=== PATIENT | female | born 1975 | race Caucasian/White ===

== ENCOUNTER 2018-07-04 17:13 | Emergency (ER) | payer OTHER ==
[~2018-07-04] VITALS: Ht 157.5 cm; Wt 107.5 kg
[~2018-07-04 17:13] MED LIST: ALBUTEROL INHAL17 GM IH; NOHOMEMEDICATIONS; NYQUIL D COLD295 ML; PREDNISONE50 MG PO; PROAIR HFA8.5 GM IH; TRIAMCINOLONE TOP
[2018-07-04 17:50] LABS: URINE BILIRUBIN NEGATIVE (Negative); URINE BLOOD 2+ (Negative); URINE CLARITY CLEAR; URINE COLOR YELLOW; URINE GLUCOSE-RANDOM* NEGATIVE (Negative); URINE KETONES NEGATIVE (Negative); URINE LEUKOCYTES-REFLEX NEGATIVE (Negative); URINE NITRITE-REFLEX NEGATIVE (Negative); URINE PROTEIN (DIPSTICK) NEGATIVE (Negative); URINE SPECIFIC GRAVITY <= 1.005 (1.005-1.035); URINE UROBILINOGEN 0.2 E.U./dl (0.2-1.0)
[2018-07-04 18:01] LABS: BACTERIA-REFLEX None Seen /HPF (None Seen); CASTS None Seen /LPF (None Seen); CRYSTALS None Seen /LPF (None Seen); SQUAMOUS None Seen /LPF (0-3); URINE RBC 0-2 Rare /HPF (0-2); URINE WBC-REFLEX None Seen /HPF (0-5)
[2018-07-04 18:28] LABS: ABSOLUTE NEUTROPHILS 6.4 thou/uL (1.4-8.2); EOSINOPHILS 4.8 % (0.0-3.0); HEMATOCRIT 34.7 % (37.0-47.0); HEMOGLOBIN 11.9 gm/dL (12.0-15.0); MCH 25.4 pg (26.0-34.0); MCHC 34.2 g/dL (28.0-37.0); MCV 74.3 fL (80.0-100.0); PLATELET COUNT 350 thou/uL (150-400); POLYS 62.2 % (36.0-66.0); RBC 4.68 mil/uL (4.20-5.00); RDW 15.9 % (10.5-14.5); WBC 10.3 thou/uL (4.0-11.0)
[2018-07-04 18:35] LABS: CALCIUM 8.6 mg/dL (8.5-10.1); CREATININE 0.6 mg/dL (0.6-1.0); POTASSIUM 3.8 mmol/L (3.5-5.1)
[2018-07-04 18:41] LABS: ALBUMIN 2.9 g/dL (3.4-5.0); TOTAL BILIRUBIN 0.2 mg/dL (<0.1-1.0); TOTAL PROTEIN 7.1 g/dL (6.4-8.2)
[2018-07-04] MEDS ORDERED: ULTRAM 50MG TAB50 MG PO (21:19)
[2018-07-04 21:50] VITALS: BP 99/52
[2018-07-05 15:11] LABS: NEISSERIA GONORRHEA-PCR Negative (Negative)
== END 2018-07-04 21:51 | disposition home or self-care (01) ==
LOC: ER 17:13
PROVIDERS: Physician Assistant
DX: N94.6 Dysmenorrhea, unspecified (principal); J45.909 Unspecified asthma, uncomplicated

== ENCOUNTER 2018-10-01 20:08 | Inpatient (IN) | payer OTHER ==
[~2018-10-01] VITALS: Ht 157.5 cm; Wt 111.1 kg
--- NOTE | ~2018-10-01 | EKG ---
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: MAGDA : 1975 Requested By: Rachel Argueta Order Number: [id number] MD: Nishant Chappell Measurements Intervals [place] Rate: 60 P: 27 MD: 149 QRS: 40 QRSD: 79 T: 56 QT: 425 QTc: 425 Interpretive Statements Sinus rhythm No significant abnormality Compared to ECG 11/23/2012 07:56:01 No significant changes Electronically Signed On 10-02-2018 7:52:39 TUBE WASHER by Nishant Chappell [email or web address] <ELECTRONICALLY SIGNED> By: Nishant Chappell MD, [facility] 10/02/18 0752 13 13 Nishant Chappell MD, [facility] /EPI
--- NOTE | ~2018-10-01 | O ---
[facility] [place] [address] OPERATIVE REPORT Name: RAFI LOPEZMARIO KEVEN Room #: 354-P ADM IN M.R.#: [id number] Admission: 10/02/18 Attend Phys: Truong Rios MD Discharge: Date of : 71 Report #: [id number] THIS REPORT FOR: //name// CC: Brian GASTON physician/PCP Truong Rios DATE OF SERVICE: 10/03/2018 SURGEON: Rui Hurley MD. GUEST SPECIALIST: KURTIS Camacho. PREOPERATIVE DIAGNOSIS: Gallstone pancreatitis. POSTOPERATIVE DIAGNOSES: 1. Gallstone pancreatitis. 2. Incarcerated incisional ventral hernia. PROCEDURE 1. Laparoscopic cholecystectomy with intraoperative cholangiogram. 2. Laparoscopic primary repair of incarcerated incisional ventral hernia. ANESTHESIA: General endotracheal anesthesia and local anesthetic. ESTIMATED BLOOD LOSS: 5 mL. SPECIMEN: Gallbladder. COMPLICATIONS: None appreciated. INDICATIONS FOR PROCEDURE: This is a 43-year-old morbidly obese [place] speaking female patient who was seen in the [facility] with right upper quadrant abdominal pain with associated shortness of air, nausea, constipation and vomiting that began the day prior to her admission. She has been unable to tolerate anything by mouth. She tried ibuprofen with no relief of her symptoms. She underwent an abdominal ultrasound showing cholelithiasis without pericholecystic fluid or wall thickening. She did have a dilated common bile duct of up to 10 mm. In addition to this, mild hepatomegaly and hepatic steatosis was present. The patient had elevated transaminases with normal total bilirubin of 0.7; however, her lipase was elevated at 6311. She was kept n.p.o. and given IV fluids and this morning, her lipase has normalized. She presents today for laparoscopic cholecystectomy with cholangiogram. OPERATIVE FINDINGS: Upon entrance in the abdominal cavity, omental adhesions to the gallbladder were present indicative of chronic cholecystitis changes. [facility] [address] [place] [address] OPERATIVE REPORT Name: RAFI LOPEZMARIO KEVEN Room #: 354-P ADM IN [facility].#: [id number] Admission: 10/02/18 Attend Phys: Truong Rios MD Discharge: Date of : 71 Report #: [id number] acute cholecystitis was identified. The critical view consisting of cystic artery, cystic duct and lower edge of the gallbladder forming a window through which the liver was visible was seen prior to clipping the cystic duct for cholangiogram. The cholangiogram was normal with free flow of contrast into the duodenal sweep and no filling defects within the common bile duct. The duct itself was not particularly dilated. After removal of the gallbladder, 3 clips remained on the cystic duct stump. While removing the gallbladder from the abdominal cavity, an incarcerated incisional ventral hernia was appreciated. Omental adhesions to the anterior abdominal wall were present and after taking these down, the hernia was seen. This was as a result of her previous operation. After removal of the gallbladder, the hernia was amenable to laparoscopic suture closure with a separate 0 PDS suture. The gallbladder was opened on the backtable revealing numerous small/medium sized nonpigmented gallstones. At the conclusion of the operation, sponge, needle, and instrument counts were correct. DESCRIPTION OF PROCEDURE IN DETAIL: After the risks, benefits and expectations of the operation were discussed in detail with the patient, informed consent was obtained. The patient was identified in the preoperative holding area. She was given IV antibiotics as documented in the chart in line with SCIP metrics. The patient was then taken to the operating room and she was placed in the supine position. SCDs were placed on the patient's bilateral lower extremities and pneumatic compression was initiated. The patient was then given IV sedation. The patient was intubated without incident. She was prepped and draped in standard sterile fashion. Timeout was performed to identify correct patient and procedure. Local anesthetic was infiltrated into the skin, subcutaneous tissue supraumbilically where a curvilinear incision was made with #15 blade scalpel. Dissection was carried down to the fascia. A small transverse fascial incision was made. An 11-mm Visiport was placed intraperitoneally with a 0-degree angled laparoscope. Pneumoperitoneum was achieved with insufflation of carbon dioxide to 15 mmHg. A 30-degree angled laparoscope was then inserted. A subxiphoid 5-mm and right subcostal 5-mm ports x 2 were placed under direct visualization after local anesthetic was infiltrated into the skin and subcutaneous tissue and appropriately sized incisions were made. Operative findings are as noted above. The dome of the gallbladder was retracted in a cephalad direction. The omental adhesions in the gallbladder were carefully taken down with the ultrasonic dissector. The gallbladder peritoneum was then scored medially and laterally with the ultrasound dissector. Dissection was carried out to identify the cystic artery and cystic duct as the only two structures entering the gallbladder. The cystic duct was clipped and a ductotomy was created sharply. The cholangiocatheter was then inserted and cholangiogram performed with findings as noted above. The cholangiocatheter was then removed and the cystic [facility] [address] [place] [address] OPERATIVE REPORT Name: MARIO HOOVER Room #: 354-P [facility] IN Omid.Carlos.#: [id number] Admission: 10/02/18 Attend Phys: Truong Rios MD Discharge: Date of : 71 Report #: [id number] duct was triply clipped distal to the ductotomy. The duct was divided with the ultrasonic dissector with a good seal. The cystic artery was divided with the ultrasound dissector with good hemostasis. The gallbladder was then dissected out of the liver bed without entrance into the gallbladder or liver bed. The gallbladder was placed in an Endopouch and removed through the supraumbilical port site. While doing so, there was dimpling associated with omental adhesions to the abdominal wall inferior to the port site. After removing the gallbladder from the abdominal cavity, the omental adhesions were taken down with the ultrasonic dissector showing the incarcerated incisional ventral hernia. A [id number] 0 PDS suture was placed with the Subhash-Samina laparoscopic fascial closure device. The suture was tied under direct visualization to ensure no incorporation of intra-abdominal content. A separate 0 PDS suture was then placed to close the port site fascial opening. The liver bed was examined for hemostasis and the Hemoclips were secured. The abdominal cavity was then desufflated and the ports were removed. After tying the fascial suture, an additional fascial defect was located just lateral to the port site, presumably from stretching of the fascia required to remove the gallbladder. An 0 PDS suture was placed externally to close the fascia. The incisions were then closed with interrupted subcuticular 4-0 Monocryl sutures and Dermabond. The patient tolerated the procedure well. She was awakened, extubated, and taken to recovery room in stable condition with no apparent intraoperative complications. <ELECTRONICALLY SIGNED> By: Rui Hurley MD, FACS 10/03/18 1530 [id number] Rui Hurley MD, FACS /nt
--- NOTE | ~2018-10-01 | PATH ---
[facility] [place] [address] PATHOLOGY RPT PROCEDURE Name: MARIO HOOVER KEVEN Room #: 354-P [facility] IN M.R.#: [id number] Admission: 10/02/18 Date of : 71 Discharge: 10/04/18 Report #: [id number] Path Case #: [id number] [facility] Accession Number: [id number] . 01 Material submitted: . GALLBLADDER . 01 Clinical history: . Cholelithiasis . 02 Diagnosis: Gallbladder "gallbladder", cholecystectomy: - Moderate chronic cholecystitis with cholelithiasis. (SHA/db; 10/07/2018) LBQ/10/07/2018 . 02 Electronically signed: . Brett Hudson MD, Pathologist NPI- [id number] . 01 Gross description: . The specimen is received in formalin, labeled "Mario Carvajal, gallbladder, is a previously opened gallbladder measuring 10.7 x 5.0 cm with a fibrous wall that measure up to 0.2 cm thick. The serosa is raymond-pink and shaggy. The mucosa is raymond-brown granular and hemorrhagic towards the fundus. The cystic duct is impacted by calculus. No discrete masses are identified. Within the container are multiple multifaceted yellow-brown calculi and its fragments measuring 5.5 x 3.7 x 1.0 cm in aggregate. Surgical Elastic Knitter degenerative tissue is submitted in A1. ([facility]; 10/03/2018) SHS/SHS . 02 Pathologist provided ICD-10: K80.10 . 02 CPT . 403848 Specimen Comment: A courtesy copy of this report has been sent to Specimen Comment: [phone], . Specimen Comment: Report sent to / DR HOLM Specimen Comment: A duplicate report has been generated due to demographic updates. Performed at: [address] [id number] MD Juan Henriquez MD Phone: [phone] Performed at: [address] [place] [address] PATHOLOGY RPT PROCEDURE Name: RAFI LOPEZMARIO KEVEN Room #: 354-P DIS IN M.R.#: [id number] Admission: 10/02/18 Date of : 71 Discharge: 10/04/18 Report #: [id number] Path Case #: [id number] [facility] [address], [place], [place] [id number] MD Hiral Stone MD Phone: [phone]
[~2018-10-01 20:08] MED LIST changes: +ULTRAM 50MG TAB50 MG PO
[2018-10-01 20:22] VITALS: BP 109/54
[2018-10-01 20:53] LABS: ABSOLUTE NEUTROPHILS 10.1 thou/uL (1.4-8.2); BASOPHILS 0.4 % (0.0-2.0); EOSINOPHILS 0.4 % (0.0-3.0); HEMATOCRIT 37.6 % (37.0-47.0); HEMOGLOBIN 12.7 gm/dL (12.0-15.0); LYMPHOCYTES 16.5 % (24.0-44.0); MCH 24.8 pg (26.0-34.0); MCHC 33.8 g/dL (28.0-37.0); MCV 73.4 fL (80.0-100.0); MONOCYTES 6.1 % (1.0-8.0); PLATELET COUNT 338 thou/uL (150-400); POLYS 76.6 % (36.0-66.0); RBC 5.12 mil/uL (4.20-5.00); RDW 16.8 % (10.5-14.5); URINE BILIRUBIN NEGATIVE (Negative); URINE BLOOD 3+ (Negative); URINE CLARITY CLEAR; URINE COLOR YELLOW; URINE GLUCOSE-RANDOM* NEGATIVE (Negative); URINE KETONES NEGATIVE (Negative); URINE LEUKOCYTES-REFLEX NEGATIVE (Negative); URINE NITRITE-REFLEX NEGATIVE (Negative); URINE PROTEIN (DIPSTICK) NEGATIVE (Negative); WBC 13.2 thou/uL (4.0-11.0)
[2018-10-01 21:02] LABS: BACTERIA-REFLEX None Seen /HPF (None Seen); CASTS None Seen /LPF (None Seen); SQUAMOUS 0-3 Few /LPF (0-3); URINE RBC 3-10 Few /HPF (0-2); URINE WBC-REFLEX 0-5 Rare /HPF (0-5)
[2018-10-01 21:03] LABS: AMORPHOUS PHOSPHATES Few /LPF (None Seen)
[2018-10-01 21:05] LABS: ANION GAP 6 mmol/L (7-16); BUN 12 mg/dL (7-18); CALCIUM 9.1 mg/dL (8.5-10.1); CHLORIDE 102 mmol/L (98-107); CO2 29 mmol/L (21-32); CREATININE 0.8 mg/dL (0.6-1.0); GLUCOSE 128 mg/dL (74-106); POTASSIUM 3.9 mmol/L (3.5-5.1); SODIUM 137 mmol/L (136-145)
[2018-10-01 21:10] LABS: LIPASE 6311 U/L (73-393); SGOT 552 U/L (15-37); SGPT 331 U/L (30-65); TOTAL BILIRUBIN 0.7 mg/dL (<0.1-1.0); TOTAL PROTEIN 7.2 g/dL (6.4-8.2); TROPONIN-I <0.06 ng/mL (<0.06)
[2018-10-02] VITALS (7 sets, daily range): BP systolic 103–129; BP diastolic 58–86
[2018-10-02] MEDS ORDERED: NOHOMEMEDICATIONS (01:53)
[2018-10-02 05:46] LABS: HEMATOCRIT 37.1 % (37.0-47.0); MCHC 32.4 g/dL (28.0-37.0); MCV 74.2 fL (80.0-100.0); RDW 16.7 % (10.5-14.5); WBC 8.7 thou/uL (4.0-11.0)
[2018-10-02 06:15] LABS: CALCIUM 8.5 mg/dL (8.5-10.1); CREATININE 0.6 mg/dL (0.6-1.0); POTASSIUM 4.1 mmol/L (3.5-5.1)
[2018-10-02 06:18] LABS: CHOLESTEROL 145 mg/dL (<200); HDL CHOLESTEROL 55 mg/dL (>40); LDL CHOLESTEROL 75 mg/dL (<100); TC:HDL 2.6 Ratio (Not establshd); TRIGLYCERIDE 79 mg/dL (<150); VLDL 16 mg/dL (<40)
[2018-10-02 06:21] LABS: SERUM ASSESSMENT Clear
[2018-10-03 04:30] VITALS: BP 110/66
[2018-10-03 06:56] LABS: HEMATOCRIT 37.8 % (37.0-47.0); HEMOGLOBIN 12.5 gm/dL (12.0-15.0); MCH 24.6 pg (26.0-34.0); MCV 74.4 fL (80.0-100.0); RBC 5.07 mil/uL (4.20-5.00); RDW 16.9 % (10.5-14.5); WBC 7.8 thou/uL (4.0-11.0)
[2018-10-03 07:05] LABS: ALBUMIN 2.5 g/dL (3.4-5.0); DIRECT BILIRUBIN 0.2 mg/dL (<0.1-0.3); TOTAL BILIRUBIN 0.8 mg/dL (<0.1-1.0); TOTAL PROTEIN 6.5 g/dL (6.4-8.2)
[2018-10-03 07:54] VITALS: BP 115/78
[2018-10-03 09:09] VITALS: BP 115/54
[2018-10-03] MEDS ORDERED: NORCO 5-325 TA1 EACH PO (11:10)
[2018-10-03] MEDS ORDERED: SENNA-S LAXATI1 EACH PO (11:10)
[2018-10-03 16:23] VITALS: BP 127/60
[2018-10-03 20:43] VITALS: BP 111/62
[2018-10-04 04:26] VITALS: BP 105/61
[2018-10-04 05:47] LABS: ABSOLUTE NEUTROPHILS 7.3 thou/uL (1.4-8.2); BASOPHILS 0.3 % (0.0-2.0); EOSINOPHILS 0.7 % (0.0-3.0); HEMATOCRIT 34.5 % (37.0-47.0); HEMOGLOBIN 11.5 gm/dL (12.0-15.0); LYMPHOCYTES 24.5 % (24.0-44.0); MCH 24.9 pg (26.0-34.0); MCHC 33.4 g/dL (28.0-37.0); MCV 74.4 fL (80.0-100.0); MONOCYTES 6.9 % (1.0-8.0); PLATELET COUNT 294 thou/uL (150-400); POLYS 67.6 % (36.0-66.0); RBC 4.64 mil/uL (4.20-5.00); RDW 17.2 % (10.5-14.5); WBC 10.8 thou/uL (4.0-11.0)
[2018-10-04 05:59] LABS: % SATURATION 16 % (20-39); IRON 59 ug/dL (50-170); TIBC 371 ug/dL (250-450)
[2018-10-04 06:06] LABS: ALBUMIN 2.5 g/dL (3.4-5.0); CALCIUM 8.2 mg/dL (8.5-10.1); CREATININE 0.7 mg/dL (0.6-1.0); POTASSIUM 3.7 mmol/L (3.5-5.1); TOTAL BILIRUBIN 0.6 mg/dL (<0.1-1.0); TOTAL PROTEIN 6.3 g/dL (6.4-8.2)
[2018-10-04 07:32] VITALS: BP 122/52
[2018-10-04 10:03] VITALS: BP 122/52
[2018-10-04 11:45] VITALS: BP 122/52
== END 2018-10-04 11:22 | disposition home or self-care (01) | DRG 417 ==
LOC: ER 20:08 → 3W 10-02 01:03 → EROBS 10-02 01:03 → 3W 10-02 01:32 → ENTRNSPT 10-04 10:48 → EDTRNSPTSTS 10-04 10:51 → 3W 10-04 11:22
PROVIDERS: Hospitalist; Internal Medicine Gastroenterology; Nurse Practitioner; Nurse Practitioner Family; Student in an Organized Health Care Education/Training Program; Surgery
PROC: 0FT44ZZ Resection of Gallbladder, Percutaneous Endoscopic Approach (ICD-10-PCS; principal; 2018-10-03)
PROC: 0WQF4ZZ Repair Abdominal Wall, Percutaneous Endoscopic Approach (ICD-10-PCS; principal; 2018-10-03)
PROC: BF121ZZ Fluoroscopy of Gallbladder using Low Osmolar Contrast (ICD-10-PCS; principal; 2018-10-03)
DX: K81.0 Acute cholecystitis (principal); K85.10 Biliary acute pancreatitis without necrosis or infection; K43.0 Incisional hernia with obstruction, without gangrene; J45.909 Unspecified asthma, uncomplicated; R74.0 Nonspecific elevation of levels of transaminase and lactic acid dehydrogenase [LDH]; Z79.899 Other long term (current) drug therapy; Z28.21 Immunization not carried out because of patient refusal
CPT/HCPCS: 10879; 50010; 50101; 50249; 50411; 50555; 50558; 50962; 51975; 52265; 53307; 54022; 54118; 55245; 55317; 56462; 56525; 56526; 62110; 62900; 70005